=== PATIENT | female | born 1955 | race Caucasian/White ===

== ENCOUNTER → 2017-09-29 | Outpatient (CLI) | payer OTHER ==
[~2017-09-29] MED LIST: ASPI-555 PO; ATEN100T PO; FURO20TA6 PO; GABA-531 PO; HONEY 1 APPL/ML TUBE TP ONE; LIDOCAINE HCL 4% LTA SOL 4 ML VIAL TP ONE; METO200T49 PO; ROPI0.255 PO; SERT50TA12 PO; SIMV10TA6 PO; SPIR25TA6 PO
[2017-09-29 17:22] VITALS: BP 124/64
== END | disposition home or self-care (01) ==
LOC: WHH 14:30
PROVIDERS: ATTEND Family Medicine
DX: L89.613 Pressure ulcer of right heel, stage 3 (principal); L89.623 Pressure ulcer of left heel, stage 3; L89.893 Pressure ulcer of other site, stage 3; L89.323 Pressure ulcer of left buttock, stage 3; I89.0 Lymphedema, not elsewhere classified; E78.5 Hyperlipidemia, unspecified; I10 Essential (primary) hypertension
CPT/HCPCS: 11042; 11045; 36415; 84134; 86140; A4450; A6197; A6248; G0463

== ENCOUNTER 2017-10-04 18:38 | Inpatient (IN) | payer OTHER ==
[~2017-10-04] VITALS: Ht 167.6 cm; Wt 151.5 kg
[2017-10-04 19:40] LABS: BASOPHILS % (AUTO) 0.4 % (0.0-5.0); EOSINOPHILS % (AUTO) 0.9 % (0.0-8.0); LYMPHOCYTES % (AUTO) 2.5 % (21.0-51.0); MEAN CORPUSCULAR HEMOGLOBIN 28.5 pg (27.0-33.0); MEAN CORPUSCULAR HGB CONC 32.2 g/dL (32.0-36.0); MEAN CORPUSCULAR VOLUME 88.7 fL (79-99); MONOCYTES % (AUTO) 8.9 % (3.0-13.0); NEUTROPHILS % (AUTO) 87.3 % (40.0-77.0); PLATELET COUNT (AUTO) 269 K/uL (130-400); RED CELL DISTRIBUTION WIDTH 16.2 % (11.0-15.5); WHITE BLOOD COUNT (AUTO) 19.6 K/uL (4.8-10.8)
[2017-10-04 20:17] LABS: CREATININE 4.8 mg/dL (0.5-1.5)
[2017-10-04 20:18] LABS: POTASSIUM 5.9 mmol/L (3.5-5.1)
[2017-10-04 20:23] LABS: ALBUMIN 2.5 g/dL (3.5-5.0); BILIRUBIN,TOTAL 0.4 mg/dL (0.2-1.0)
[2017-10-04] MEDS ORDERED: ZOSYN 3.375GM+NS 50ML 50 ML IV ONE (20:25)
[2017-10-04] MEDS ORDERED: SODIUM CHLORIDE 0.9% 500ML 500 ML IV ONE (22:02)
[2017-10-04] MEDS ORDERED: VANCOMYCIN 1GM+NS 250ML 250 ML IV ONE (22:02)
[2017-10-04 22:40] LABS: INR 1.01 (0.85-1.15); PARTIAL THROMBOPLASTIN TIME 29.4 SEC (26.3-35.5); PROTHROMBIN TIME 10.6 SEC (9.6-11.6)
[2017-10-04] MEDS ORDERED: PHENYLEPHRINE HCL 10 MG/ML 1ML VIAL IV ONE (22:41)
[2017-10-04] MEDS ORDERED: SODIUM CHLORIDE 0.9% 1000ML 1,000 ML IV ONE (22:42)
[2017-10-04] MEDS ORDERED: SODIUM CHLORIDE 0.9% 250 ML IV ONE (22:44)
[2017-10-04 23:21] LABS: CREATINE KINASE MB 8.6 ng/mL (0.5-3.6); MYOGLOBIN 1836 ng/mL (10-92); TROPONIN I < 0.04 ng/mL (0.00-0.06)
[2017-10-04 23:23] LABS: CREATINE KINASE, TOTAL 442 U/L (21-232)
[2017-10-04 23:39] LABS: APPEARANCE,URINE Turbid (CLEAR); BILIRUBIN,URINE Negative (NEGATIVE); COLOR,URINE Dark Yellow (YELLOW); GLUCOSE, URINE (UA) Negative (NEGATIVE); KETONES,URINE Trace mg/dL (NEGATIVE); LEUKOCYTE ESTERASE ,URINE Moderate (NEGATIVE); NITRATE,URINE Negative (NEGATIVE); OCCULT BLOOD,URINE Moderate (NEGATIVE); PROTEIN,URINE >=1000 (NEGATIVE)
[2017-10-04 23:55] LABS: BACTERIA,URINE Few /HPF (None Seen)
[2017-10-04 23:56] LABS: AMORPHOUS SEDIMENT,UR Many /LPF (None Seen); MUCUS,URINE Few LPF (None Seen); SQUAMOUS EPITHELIAL CELL,UR Few /HPF (0-2)
[2017-10-05] VITALS (29 sets, daily range): BP systolic 86–143; BP diastolic 36–106
[2017-10-05] MEDS ORDERED: ENOXAPARIN SODIUM 30 MG/0.3 ML SQ ONE (00:03)
[2017-10-05] MEDS ORDERED: FLUCONAZOLE 400 MG/NS 200 ML 200 ML ONE (00:37)
[2017-10-05 01:17] LABS: ABG BASE EXCESS 1.5 mmol/L (-2.0-3.0); ABG HCO3 30.2 mmol/L (21.0-28.0); ABG OXYGEN SATURATION 89.9 % (95.0-99.0); ABG PCO2 65 mmHg (32-45)
[2017-10-05] MEDS ORDERED: HYDRALAZINE HCL 20 MG/ML VIAL IV PRN (01:30)
[2017-10-05] MEDS ORDERED: ONDANSETRON HCL 4 MG/2 ML VIAL IVP PRN ×2 (01:30→09:30)
[2017-10-05] MEDS ORDERED: MORPHINE SULFATE 2 MG/ML 1ML SYG IVP PRN ×2 (01:30)
[2017-10-05] MEDS ORDERED: HYDROCORTISONE SOD SUCCINATE 100 MG/2 ML VIAL ONE (01:31)
[2017-10-05] MEDS ORDERED: MORPHINE SULFATE 4 MG/1ML SYG ONE (01:51)
[2017-10-05] MEDS ORDERED: SODIUM CHLORIDE 0.9% 250 ML IV ONE ×5 (01:59→09:04)
[2017-10-05] MEDS ORDERED: PHENYLEPHRINE HCL 10 MG/ML 1ML VIAL IV ONE ×3 (01:59→09:03)
[2017-10-05 02:19] LABS: BASOPHILS % (AUTO) 0.2 % (0.0-5.0); EOSINOPHILS % (AUTO) 0.8 % (0.0-8.0); HEMATOCRIT 29.4 % (36-48); MEAN CORPUSCULAR HEMOGLOBIN 29.7 pg (27.0-33.0); MEAN CORPUSCULAR HGB CONC 33.2 g/dL (32.0-36.0); MEAN CORPUSCULAR VOLUME 89.6 fL (79-99); MONOCYTES % (AUTO) 9.9 % (3.0-13.0); NEUTROPHILS % (AUTO) 87.1 % (40.0-77.0); PLATELET COUNT (AUTO) 263 K/uL (130-400); RED BLOOD CELL COUNT(AUTO) 3.28 MIL/uL (4.00-5.50); RED CELL DISTRIBUTION WIDTH 16.3 % (11.0-15.5); WHITE BLOOD COUNT (AUTO) 17.3 K/uL (4.8-10.8)
[2017-10-05] MEDS ORDERED: SODIUM CHLORIDE 0.9% 100 ML IV ONE (03:07)
[2017-10-05] MEDS ORDERED: VASOPRESSIN 20 UNITS/ML 1ML VIAL ONE (03:07)
[2017-10-05 04:49] LABS: BASOPHILS % (AUTO) 0.3 % (0.0-5.0); EOSINOPHILS % (AUTO) 0.3 % (0.0-8.0); HEMATOCRIT 24.8 % (36-48); LYMPHOCYTES % (AUTO) 1.5 % (21.0-51.0); MEAN CORPUSCULAR HEMOGLOBIN 30.3 pg (27.0-33.0); MEAN CORPUSCULAR HGB CONC 34.1 g/dL (32.0-36.0); MEAN CORPUSCULAR VOLUME 88.8 fL (79-99); MONOCYTES % (AUTO) 5.6 % (3.0-13.0); NEUTROPHILS % (AUTO) 92.3 % (40.0-77.0); PLATELET COUNT (AUTO) 317 K/uL (130-400); RED BLOOD CELL COUNT(AUTO) 2.79 MIL/uL (4.00-5.50); RED CELL DISTRIBUTION WIDTH 16.2 % (11.0-15.5); WHITE BLOOD COUNT (AUTO) 19.8 K/uL (4.8-10.8)
[2017-10-05 05:04] LABS: B-TYPE NATRIURETIC PEPTIDE 1580 pg/mL (0-100)
[2017-10-05 05:17] LABS: CARBON DIOXIDE 31 mmol/L (21-32); CHLORIDE 96 mmol/L (101-111); CREATINE KINASE MB 5.6 ng/mL (0.5-3.6); CREATINE KINASE, TOTAL 336 U/L (21-232); CREATININE 4.5 mg/dL (0.5-1.5); GLOMERULAR FILTR. RATE CALC 10 mL/min (>60); GLUCOSE,RANDOM 109 mg/dL (70-105); MYOGLOBIN 896 ng/mL (10-92); POTASSIUM 5.2 mmol/L (3.5-5.1); SODIUM SERUM 134 mmol/L (136-145); TROPONIN I < 0.04 ng/mL (0.00-0.06); UREA NITROGEN, BLOOD 60 mg/dL (7-18)
[2017-10-05] MEDS ORDERED: ZOSYN 3.375GM+NS 50ML 50 ML IV ONE (06:19)
[2017-10-05 06:54] LABS: ABG BASE EXCESS -0.1 mmol/L (-2.0-3.0); ABG HCO3 29.7 mmol/L (21.0-28.0); ABG OXYGEN SATURATION 94.1 % (95.0-99.0); ABG PCO2 73 mmHg (32-45)
[2017-10-05] MEDS ORDERED: PHENYLEPHRINE HCL 10 MG in SODIUM CHLORIDE 0.9% 250 ML IV SCH (09:00)
[2017-10-05] MEDS: SODIUM CHLORIDE 0.9% 1000ML 1,000 ML IV SCH ×2 (09:30→10:50)
[2017-10-05] MEDS ORDERED: ACETAMINOPHEN 325 MG TAB PO PRN (09:30)
[2017-10-05] MEDS: ZOSYN 3.375GM+NS 50ML 50 ML IV SCH (09:30)
[2017-10-05] MEDS ORDERED: VANCOMYCIN PROTOCOL PER PHARMACY IV SCH (09:30)
[2017-10-05] MEDS ORDERED: VASOPRESSIN 125 UNITS in SODIUM CHLORIDE 0.9% 250 ML IV PRN (09:30)
[2017-10-05] MEDS ORDERED: MORPHINE SULFATE 4 MG/1ML SYG IVP PRN ×2 (09:30)
[2017-10-05 09:57] LABS: ABG BASE EXCESS -1.6 mmol/L (-2.0-3.0); ABG HCO3 26.9 mmol/L (21.0-28.0); ABG OXYGEN SATURATION 92.1 % (95.0-99.0); ABG PCO2 62 mmHg (32-45)
[2017-10-05] MEDS ORDERED: ASPI-555 PO (10:29)
[2017-10-05] MEDS ORDERED: SERT50TA12 PO (10:29)
[2017-10-05] MEDS ORDERED: ATEN100T PO (10:29)
[2017-10-05] MEDS ORDERED: SPIR25TA6 PO (10:29)
[2017-10-05] MEDS ORDERED: METO200T49 PO (10:29)
[2017-10-05] MEDS ORDERED: FURO20TA6 PO (10:29)
[2017-10-05] MEDS ORDERED: ROPI0.255 PO (10:29)
[2017-10-05] MEDS ORDERED: GABA-531 PO (10:29)
[2017-10-05] MEDS ORDERED: SIMV10TA6 PO (10:29)
[2017-10-05] MEDS: PHENYLEPHRINE HCL 10 MG in SODIUM CHLORIDE 0.9% 250 ML IV SCH ×5 (11:14→18:07)
[2017-10-05] MEDS ORDERED: COMPOUND IV REFRIGERATED 1 EACH IVSOLN MISC PRN (11:15)
[2017-10-05] MEDS: LACTATED RINGERS 1000ML 1,000 ML IV SCH (17:45)
[2017-10-05] MEDS ORDERED: PHENYLEPHRINE HCL 50 MG in SODIUM CHLORIDE 0.9% 250 ML IV SCH (19:15)
[2017-10-05] MEDS: ACETAMINOPHEN 325 MG TAB PO PRN (20:49)
[2017-10-05] MEDS: VANCOMYCIN 750MG + NS 250 ML IV SCH ×2 (22:34)
[2017-10-05] MEDS: NYSTATIN 30 GM CREAM.GM. TP SCH (22:39)
[2017-10-05] MEDS: HYDROCORTISONE SOD SUCCINATE 100 MG/2 ML VIAL IV SCH (22:39)
[2017-10-06] VITALS (24 sets, daily range): BP systolic 76–129; BP diastolic 29–75
[2017-10-06] MEDS: ZOSYN 3.375GM+NS 50ML 50 ML IV SCH ×3 (00:02→21:56)
[2017-10-06] MEDS: LACTATED RINGERS 1000ML 1,000 ML IV SCH ×3 (01:45→16:32)
[2017-10-06 03:57] LABS: ABG BASE EXCESS -2.5 mmol/L (-2.0-3.0); ABG OXYGEN SATURATION 96.5 % (95.0-99.0); ABG PCO2 61 mmHg (32-45)
[2017-10-06 04:25] LABS: HEMATOCRIT 27.2 % (36-48); MEAN CORPUSCULAR HEMOGLOBIN 30.1 pg (27.0-33.0); MEAN CORPUSCULAR HGB CONC 33.9 g/dL (32.0-36.0); MEAN CORPUSCULAR VOLUME 88.8 fL (79-99); PLATELET COUNT (AUTO) 283 K/uL (130-400); RED BLOOD CELL COUNT(AUTO) 3.06 MIL/uL (4.00-5.50); RED CELL DISTRIBUTION WIDTH 16.2 % (11.0-15.5); WHITE BLOOD COUNT (AUTO) 12.9 K/uL (4.8-10.8)
[2017-10-06 04:28] LABS: ALBUMIN 2.2 g/dL (3.5-5.0); BILIRUBIN,TOTAL 0.5 mg/dL (0.2-1.0); CREATININE 3.7 mg/dL (0.5-1.5); MAGNESIUM 1.6 mg/dL (1.80-2.40); PHOSPHORUS 5.6 mg/dL (2.5-4.9)
[2017-10-06 04:31] LABS: B-TYPE NATRIURETIC PEPTIDE 2150 pg/mL (0-100)
[2017-10-06 04:41] LABS: TOTAL PROTEIN, SERUM 6.6 g/dL (6.0-8.3)
[2017-10-06 04:51] LABS: BAND NEUTROPHILS % (MANUAL) 7 % (0-2); BASOPHILS % (MANUAL) 2 % (0-2); LYMPHOCYTES % (MANUAL) 6 % (22-44); MAN.DIFF COMMENT-IMPRESSION MANUAL DIFFERENTIAL; MONOCYTES % (MANUAL) 4 % (2-9); PLATELET MORPHOLOGY COMMENT ADEQUATE; SEGMENTED NEUTROPHILS % 81 % (40-70)
[2017-10-06 07:27] LABS: ABG BASE EXCESS -1.6 mmol/L (-2.0-3.0); ABG HCO3 26.3 mmol/L (21.0-28.0); ABG OXYGEN SATURATION 93.5 % (95.0-99.0); ABG PCO2 57 mmHg (32-45)
[2017-10-06] MEDS: FLUCONAZOLE 200 MG/NS 100 ML 100 ML IV SCH (08:26)
[2017-10-06] MEDS: THIAMINE HCL 100 MG TABLET PO SCH (08:26)
[2017-10-06] MEDS: HYDROCORTISONE SOD SUCCINATE 100 MG/2 ML VIAL IV SCH ×2 (08:26→21:56)
[2017-10-06] MEDS: ENOXAPARIN SODIUM 30 MG/0.3 ML SQ SCH (08:26)
[2017-10-06] MEDS: NYSTATIN 30 GM CREAM.GM. TP SCH (08:27)
[2017-10-06] MEDS: PANTOPRAZOLE 40 MG/VIAL IVP SCH (08:55)
[2017-10-06] MEDS ORDERED: ENOXAPARIN SODIUM 40 MG/0.4 ML SYRINGE SQ SCH (09:00)
[2017-10-06] MEDS: ACETAMINOPHEN 325 MG TAB PO PRN (16:38)
[2017-10-06] MEDS: MAGNESIUM 2GM PREMIX 50ML 50 ML IV PRN (19:27)
[2017-10-06] MEDS: VANCOMYCIN 750MG + NS 250 ML IV SCH ×2 (21:56)
[2017-10-07] VITALS (23 sets, daily range): BP systolic 75–154; BP diastolic 37–118
[2017-10-07] MEDS: NYSTATIN 30 GM CREAM.GM. TP SCH ×3 (00:34→20:43)
[2017-10-07] MEDS: LACTATED RINGERS 1000ML 1,000 ML IV SCH ×4 (01:45→21:59)
[2017-10-07] MEDS: ACETAMINOPHEN 325 MG TAB PO PRN (04:11)
[2017-10-07 04:22] LABS: ABG BASE EXCESS 0.2 mmol/L (-2.0-3.0); ABG HCO3 28.2 mmol/L (21.0-28.0); ABG OXYGEN SATURATION 96.4 % (95.0-99.0); ABG PCO2 60 mmHg (32-45)
[2017-10-07 04:57] LABS: BASOPHILS % (AUTO) 0.2 % (0.0-5.0); EOSINOPHILS % (AUTO) 0.1 % (0.0-8.0); HEMATOCRIT 28.6 % (36-48); LYMPHOCYTES % (AUTO) 4.1 % (21.0-51.0); MEAN CORPUSCULAR HEMOGLOBIN 28.8 pg (27.0-33.0); MEAN CORPUSCULAR HGB CONC 32.5 g/dL (32.0-36.0); MEAN CORPUSCULAR VOLUME 88.7 fL (79-99); MONOCYTES % (AUTO) 7.9 % (3.0-13.0); NEUTROPHILS % (AUTO) 87.7 % (40.0-77.0); PLATELET COUNT (AUTO) 310 K/uL (130-400); RED BLOOD CELL COUNT(AUTO) 3.23 MIL/uL (4.00-5.50); WHITE BLOOD COUNT (AUTO) 10.2 K/uL (4.8-10.8)
[2017-10-07 05:13] LABS: CREATININE 2.5 mg/dL (0.5-1.5); PHOSPHORUS 4.3 mg/dL (2.5-4.9); POTASSIUM 4.6 mmol/L (3.5-5.1)
[2017-10-07 05:14] LABS: B-TYPE NATRIURETIC PEPTIDE 2790 pg/mL (0-100)
[2017-10-07] MEDS: INSULIN HUMULIN R 100 UNIT/ML 3ML SQ SCH ×4 (07:29→21:00)
[2017-10-07] MEDS: ENOXAPARIN SODIUM 30 MG/0.3 ML SQ SCH (08:22)
[2017-10-07] MEDS: ZOSYN 3.375GM+NS 50ML 50 ML IV SCH ×2 (08:22→20:43)
[2017-10-07] MEDS: PANTOPRAZOLE 40 MG/VIAL IVP SCH (08:22)
[2017-10-07] MEDS: HYDROCORTISONE SOD SUCCINATE 100 MG/2 ML VIAL IV SCH ×2 (08:22→20:42)
[2017-10-07] MEDS: THIAMINE HCL 100 MG TABLET PO SCH (08:22)
[2017-10-07] MEDS: FLUCONAZOLE 200 MG/NS 100 ML 100 ML IV SCH (08:22)
[2017-10-07] MEDS: VANCOMYCIN 750MG + NS 250 ML IV SCH ×2 (21:12)
[2017-10-08] VITALS (29 sets, daily range): BP systolic 76–150; BP diastolic 38–94
[2017-10-08 03:59] LABS: HEMATOCRIT 27.9 % (36-48); MEAN CORPUSCULAR HGB CONC 33.9 g/dL (32.0-36.0); MEAN CORPUSCULAR VOLUME 88.6 fL (79-99); NUCLEATED RED BLOOD CELLS 0.1 % (0.0-0.19); PLATELET COUNT (AUTO) 278 K/uL (130-400); RED BLOOD CELL COUNT(AUTO) 3.15 MIL/uL (4.00-5.50); WHITE BLOOD COUNT (AUTO) 9.1 K/uL (4.8-10.8)
[2017-10-08 04:07] LABS: ALBUMIN 2.1 g/dL (3.5-5.0); BILIRUBIN,TOTAL 0.4 mg/dL (0.2-1.0); CREATININE 1.5 mg/dL (0.5-1.5); MAGNESIUM 1.7 mg/dL (1.80-2.40); PHOSPHORUS 3.1 mg/dL (2.5-4.9); POTASSIUM 4.6 mmol/L (3.5-5.1); TOTAL PROTEIN, SERUM 6.4 g/dL (6.0-8.3)
[2017-10-08] MEDS: MAGNESIUM 2GM PREMIX 50ML 50 ML IV PRN (04:57)
[2017-10-08 06:40] LABS: ABG BASE EXCESS 7.2 mmol/L (-2.0-3.0); ABG PCO2 46 mmHg (32-45)
[2017-10-08] MEDS: INSULIN HUMULIN R 100 UNIT/ML 3ML SQ SCH ×4 (07:04→21:00)
[2017-10-08] MEDS: FLUCONAZOLE 200 MG/NS 100 ML 100 ML IV SCH (08:45)
[2017-10-08] MEDS: FOLIC ACID 1 MG TABLET PO SCH (08:46)
[2017-10-08] MEDS: THIAMINE HCL 100 MG TABLET PO SCH (08:46)
[2017-10-08] MEDS: HYDROCORTISONE SOD SUCCINATE 100 MG/2 ML VIAL IV SCH ×2 (08:46→20:17)
[2017-10-08] MEDS: SIMETHICONE 80 MG TAB.CHEW PO SCH ×4 (08:46→20:17)
[2017-10-08] MEDS: ZOSYN 3.375GM+NS 50ML 50 ML IV SCH ×2 (08:46→20:16)
[2017-10-08] MEDS: NYSTATIN 30 GM CREAM.GM. TP SCH ×2 (08:47→20:17)
[2017-10-08] MEDS: ENOXAPARIN SODIUM 30 MG/0.3 ML SQ SCH (08:47)
[2017-10-08] MEDS: LACTATED RINGERS 1000ML 1,000 ML IV SCH (09:45)
[2017-10-08] MEDS: PANTOPRAZOLE 40 MG/VIAL IVP SCH (17:19)
[2017-10-08] MEDS: MULTIVITS,STRESS FORMULA/ZINC 1 TABLET PO SCH (17:19)
[2017-10-08] MEDS: LACTULOSE 20 GM/30 ML UDCUP PO PRN (17:19)
[2017-10-08] MEDS: ACETAMINOPHEN 325 MG TAB PO PRN (19:29)
[2017-10-08] MEDS: VANCOMYCIN 750MG + NS 250 ML IV SCH ×2 (20:16)
[2017-10-08] MEDS: ACETAMINOPHEN-CODEINE 300/30MG TAB PO PRN (22:04)
[2017-10-08] MEDS: VANCOMYCIN 1GM+NS 250ML 250 ML IV SCH (22:26)
[2017-10-09] VITALS (24 sets, daily range): BP systolic 94–147; BP diastolic 49–80
[2017-10-09 04:28] LABS: HEMATOCRIT 27.6 % (36-48); MEAN CORPUSCULAR HEMOGLOBIN 29.4 pg (27.0-33.0); MEAN CORPUSCULAR HGB CONC 33.2 g/dL (32.0-36.0); MEAN CORPUSCULAR VOLUME 88.5 fL (79-99); PLATELET COUNT (AUTO) 269 K/uL (130-400); RED BLOOD CELL COUNT(AUTO) 3.12 MIL/uL (4.00-5.50); RED CELL DISTRIBUTION WIDTH 16.2 % (11.0-15.5); WHITE BLOOD COUNT (AUTO) 7.2 K/uL (4.8-10.8)
[2017-10-09 04:35] LABS: CREATININE 1.1 mg/dL (0.5-1.5); MAGNESIUM 1.5 mg/dL (1.80-2.40); PHOSPHORUS 2.7 mg/dL (2.5-4.9); POTASSIUM 4.3 mmol/L (3.5-5.1)
[2017-10-09] MEDS: MAGNESIUM 2GM PREMIX 50ML 50 ML IV PRN (04:56)
[2017-10-09] MEDS: INSULIN HUMULIN R 100 UNIT/ML 3ML SQ SCH (07:30)
[2017-10-09] MEDS: ZOSYN 3.375GM+NS 50ML 50 ML IV SCH ×2 (08:57→20:52)
[2017-10-09] MEDS: SIMETHICONE 80 MG TAB.CHEW PO SCH ×4 (08:58→20:53)
[2017-10-09] MEDS: FOLIC ACID 1 MG TABLET PO SCH (08:58)
[2017-10-09] MEDS: THIAMINE HCL 100 MG TABLET PO SCH (08:58)
[2017-10-09] MEDS: FLUCONAZOLE 200 MG/NS 100 ML 100 ML IV SCH (08:58)
[2017-10-09] MEDS: PANTOPRAZOLE 40 MG/VIAL IVP SCH (08:58)
[2017-10-09] MEDS: HYDROCORTISONE SOD SUCCINATE 100 MG/2 ML VIAL IV SCH ×2 (08:58→20:51)
[2017-10-09] MEDS: MULTIVITS,STRESS FORMULA/ZINC 1 TABLET PO SCH (08:58)
[2017-10-09] MEDS: NYSTATIN 30 GM CREAM.GM. TP SCH ×2 (08:59→20:53)
[2017-10-09] MEDS: ENOXAPARIN SODIUM 40 MG/0.4 ML SYRINGE SQ SCH (08:59)
[2017-10-09] MEDS: ACETAMINOPHEN-CODEINE 300/30MG TAB PO PRN (17:33)
[2017-10-09] MEDS: VANCOMYCIN 1GM+NS 250ML 250 ML IV SCH (20:52)
[2017-10-10] VITALS (27 sets, daily range): BP systolic 109–151; BP diastolic 41–85
[2017-10-10 03:23] LABS: HEMATOCRIT 28.6 % (36-48); MEAN CORPUSCULAR HEMOGLOBIN 30.3 pg (27.0-33.0); MEAN CORPUSCULAR HGB CONC 33.6 g/dL (32.0-36.0); PLATELET COUNT (AUTO) 277 K/uL (130-400); RED BLOOD CELL COUNT(AUTO) 3.18 MIL/uL (4.00-5.50); RED CELL DISTRIBUTION WIDTH 16.2 % (11.0-15.5); WHITE BLOOD COUNT (AUTO) 7.7 K/uL (4.8-10.8)
[2017-10-10 03:32] LABS: CREATININE 0.8 mg/dL (0.5-1.5); MAGNESIUM 1.5 mg/dL (1.80-2.40); PHOSPHORUS 2.5 mg/dL (2.5-4.9); POTASSIUM 4.4 mmol/L (3.5-5.1)
[2017-10-10 03:34] LABS: INR 1.06 (0.85-1.15); PROTHROMBIN TIME 11.1 SEC (9.6-11.6)
[2017-10-10] MEDS: MAGNESIUM 2GM PREMIX 50ML 50 ML IV PRN (06:59)
[2017-10-10] MEDS: ENOXAPARIN SODIUM 40 MG/0.4 ML SYRINGE SQ SCH (09:00)
[2017-10-10] MEDS: MULTIVITS,STRESS FORMULA/ZINC 1 TABLET PO SCH (09:00)
[2017-10-10] MEDS: ASCORBIC ACID 500 MG TAB PO SCH (09:00)
[2017-10-10] MEDS: FOLIC ACID 1 MG TABLET PO SCH (09:00)
[2017-10-10] MEDS: THIAMINE HCL 100 MG TABLET PO SCH (09:00)
[2017-10-10] MEDS ORDERED: DEXAMETHASONE SOD PHOSPHATE 10MG/ML 1ML VIAL ONE (09:02)
[2017-10-10] MEDS ORDERED: GLYCOPYRROLATE 0.2 MG/ML 5 ML VIAL ONE (09:02)
[2017-10-10] MEDS ORDERED: NEOSTIGMINE 5MG/5ML SYR IV ONE (09:02)
[2017-10-10] MEDS ORDERED: SUCCINYLCHOLINE 200MG/10ML SYR ONE (09:02)
[2017-10-10] MEDS ORDERED: LIDOCAINE PF 2% 5ML ABBOJECT ONE (09:02)
[2017-10-10] MEDS ORDERED: ONDANSETRON HCL 4 MG/2 ML VIAL ONE (09:02)
[2017-10-10] MEDS ORDERED: PROPOFOL 10 MG/ML 20ML VIAL IV ONE (09:03)
[2017-10-10] MEDS: HYDROCORTISONE SOD SUCCINATE 100 MG/2 ML VIAL IV SCH ×2 (09:08→21:03)
[2017-10-10] MEDS: PANTOPRAZOLE 40 MG/VIAL IVP SCH (09:08)
[2017-10-10] MEDS: FLUCONAZOLE 200 MG/NS 100 ML 100 ML IV SCH (09:08)
[2017-10-10] MEDS: ZOSYN 3.375GM+NS 50ML 50 ML IV SCH ×2 (09:08→21:03)
[2017-10-10] MEDS: NYSTATIN 30 GM CREAM.GM. TP SCH ×3 (10:00→21:04)
[2017-10-10] MEDS: SIMETHICONE 80 MG TAB.CHEW PO SCH ×4 (13:00→21:03)
[2017-10-10] MEDS ORDERED: KETAMINE HCL 100 MG/ML 5ML VIAL IJ ONE (13:21)
[2017-10-10] MEDS ORDERED: PHARMACY COMMUNICATION MISC SCH (16:00)
[2017-10-10] MEDS ORDERED: SODIUM HYPOCHLORITE 0.25% [HALF STRENGTH] 473 ML TOPICAL SOLN TP SCH ×2 (16:00→23:00)
[2017-10-10] MEDS: ACETAMINOPHEN-CODEINE 300/30MG TAB PO PRN (18:02)
[2017-10-10] MEDS: VANCOMYCIN 1GM+NS 250ML 250 ML IV SCH (21:03)
[2017-10-11] VITALS (14 sets, daily range): BP systolic 92–145; BP diastolic 41–84
[2017-10-11] MEDS: ACETAMINOPHEN-CODEINE 300/30MG TAB PO PRN ×4 (00:31→22:19)
[2017-10-11] MEDS: SODIUM HYPOCHLORITE 0.25% [HALF STRENGTH] 473 ML TOPICAL SOLN TP SCH ×3 (00:32→20:49)
[2017-10-11 04:02] LABS: HEMATOCRIT 29.1 % (36-48); MEAN CORPUSCULAR HEMOGLOBIN 28.3 pg (27.0-33.0); MEAN CORPUSCULAR HGB CONC 31.7 g/dL (32.0-36.0); MEAN CORPUSCULAR VOLUME 89.3 fL (79-99); PLATELET COUNT (AUTO) 260 K/uL (130-400); RED BLOOD CELL COUNT(AUTO) 3.26 MIL/uL (4.00-5.50); RED CELL DISTRIBUTION WIDTH 16.2 % (11.0-15.5); WHITE BLOOD COUNT (AUTO) 9.1 K/uL (4.8-10.8)
[2017-10-11 04:11] LABS: CREATININE 0.7 mg/dL (0.5-1.5); POTASSIUM 3.9 mmol/L (3.5-5.1)
[2017-10-11 04:36] LABS: BAND NEUTROPHILS % (MANUAL) 3 % (0-2); EOSINOPHILS % (MANUAL) 3 % (1-6); LYMPHOCYTES % (MANUAL) 12 % (22-44); METAMYELOCYTES % 2 % (0-0); MONOCYTES % (MANUAL) 5 % (2-9); SEGMENTED NEUTROPHILS % 75 % (40-70)
[2017-10-11 04:38] LABS: MAN.DIFF COMMENT-IMPRESSION MANUAL DIFFERENTIAL
[2017-10-11 04:39] LABS: PLATELET MORPHOLOGY COMMENT ADEQUATE
[2017-10-11] MEDS: ZOSYN 3.375GM+NS 50ML 50 ML IV SCH ×2 (08:04→20:46)
[2017-10-11] MEDS: PANTOPRAZOLE 40 MG/VIAL IVP SCH (08:04)
[2017-10-11] MEDS: ENOXAPARIN SODIUM 40 MG/0.4 ML SYRINGE SQ SCH ×2 (08:04→20:47)
[2017-10-11] MEDS: HYDROCORTISONE SOD SUCCINATE 100 MG/2 ML VIAL IV SCH ×2 (08:04→20:47)
[2017-10-11] MEDS: ASCORBIC ACID 500 MG TAB PO SCH (08:05)
[2017-10-11] MEDS: MULTIVITS,STRESS FORMULA/ZINC 1 TABLET PO SCH (08:05)
[2017-10-11] MEDS: FOLIC ACID 1 MG TABLET PO SCH (08:05)
[2017-10-11] MEDS: THIAMINE HCL 100 MG TABLET PO SCH (08:05)
[2017-10-11] MEDS: SIMETHICONE 80 MG TAB.CHEW PO SCH ×4 (08:05→20:46)
[2017-10-11] MEDS: NYSTATIN 30 GM CREAM.GM. TP SCH ×2 (08:06→20:50)
[2017-10-11] MEDS: FLUCONAZOLE 200 MG/NS 100 ML 100 ML IV SCH (08:06)
[2017-10-11] MEDS: VANCOMYCIN 1GM+NS 250ML 250 ML IV SCH (20:48)
[2017-10-11] MEDS: FUROSEMIDE 20 MG TABLET PO SCH (20:48)
[2017-10-12] VITALS (7 sets, daily range): BP systolic 125–142; BP diastolic 67–90
[2017-10-12] MEDS: ACETAMINOPHEN-CODEINE 300/30MG TAB PO PRN ×3 (05:07→21:35)
[2017-10-12] MEDS: SODIUM HYPOCHLORITE 0.25% [HALF STRENGTH] 473 ML TOPICAL SOLN TP SCH ×3 (05:07→21:37)
[2017-10-12 05:11] LABS: HEMATOCRIT 29.8 % (36-48); MEAN CORPUSCULAR HEMOGLOBIN 29.9 pg (27.0-33.0); MEAN CORPUSCULAR HGB CONC 33.7 g/dL (32.0-36.0); PLATELET COUNT (AUTO) 256 K/uL (130-400); RED BLOOD CELL COUNT(AUTO) 3.35 MIL/uL (4.00-5.50); RED CELL DISTRIBUTION WIDTH 16.1 % (11.0-15.5); WHITE BLOOD COUNT (AUTO) 10.7 K/uL (4.8-10.8)
[2017-10-12 05:31] LABS: CREATININE 0.6 mg/dL (0.5-1.5); POTASSIUM 3.7 mmol/L (3.5-5.1)
[2017-10-12] MEDS: MULTIVITS,STRESS FORMULA/ZINC 1 TABLET PO SCH (09:00)
[2017-10-12] MEDS: THIAMINE HCL 100 MG TABLET PO SCH (09:30)
[2017-10-12] MEDS: FUROSEMIDE 20 MG TABLET PO SCH ×2 (09:31→21:37)
[2017-10-12] MEDS: ASCORBIC ACID 500 MG TAB PO SCH (09:31)
[2017-10-12] MEDS: PANTOPRAZOLE SODIUM 40 MG TABLET.DR PO SCH (09:32)
[2017-10-12] MEDS: HYDROCORTISONE SOD SUCCINATE 100 MG/2 ML VIAL IV SCH (09:32)
[2017-10-12] MEDS: SIMETHICONE 80 MG TAB.CHEW PO SCH ×4 (09:32→21:36)
[2017-10-12] MEDS: FOLIC ACID 1 MG TABLET PO SCH (09:32)
[2017-10-12] MEDS: ZOSYN 3.375GM+NS 50ML 50 ML IV SCH ×2 (09:33→21:37)
[2017-10-12] MEDS: ENOXAPARIN SODIUM 40 MG/0.4 ML SYRINGE SQ SCH ×2 (09:34→21:36)
[2017-10-12] MEDS: FLUCONAZOLE 200 MG/NS 100 ML 100 ML IV SCH (09:57)
[2017-10-12] MEDS ORDERED: MORPHINE SULFATE 4 MG/1ML SYG ONE (14:24)
[2017-10-12] MEDS: NYSTATIN 30 GM CREAM.GM. TP SCH ×2 (15:18→21:37)
[2017-10-12] MEDS ORDERED: SILVER NITRATE APPLICATOR 1 SWAB TP ONE (18:36)
[2017-10-12 18:52] LABS: HEMATOCRIT 32.4 % (36-48); MEAN CORPUSCULAR HEMOGLOBIN 27.9 pg (27.0-33.0); MEAN CORPUSCULAR HGB CONC 31.6 g/dL (32.0-36.0); MEAN CORPUSCULAR VOLUME 88.3 fL (79-99); NUCLEATED RED BLOOD CELLS 0.2 % (0.0-0.19); PLATELET COUNT (AUTO) 300 K/uL (130-400); RED BLOOD CELL COUNT(AUTO) 3.67 MIL/uL (4.00-5.50); RED CELL DISTRIBUTION WIDTH 16.1 % (11.0-15.5); WHITE BLOOD COUNT (AUTO) 12.7 K/uL (4.8-10.8)
[2017-10-12] MEDS: VANCOMYCIN 1.25 GM in SODIUM CHLORIDE 0.9% 250 ML IV SCH (22:37)
[2017-10-13] VITALS (7 sets, daily range): BP systolic 114–153; BP diastolic 60–74
[2017-10-13 04:24] LABS: HEMATOCRIT 27.6 % (36-48); MEAN CORPUSCULAR HEMOGLOBIN 28.9 pg (27.0-33.0); MEAN CORPUSCULAR HGB CONC 33.1 g/dL (32.0-36.0); MEAN CORPUSCULAR VOLUME 87.2 fL (79-99); PLATELET COUNT (AUTO) 251 K/uL (130-400); RED BLOOD CELL COUNT(AUTO) 3.17 MIL/uL (4.00-5.50); WHITE BLOOD COUNT (AUTO) 10.3 K/uL (4.8-10.8)
[2017-10-13] MEDS: MORPHINE SULFATE 4 MG/1ML SYG IM PRN (04:27)
[2017-10-13] MEDS: SODIUM HYPOCHLORITE 0.25% [HALF STRENGTH] 473 ML TOPICAL SOLN TP SCH ×2 (04:29→20:46)
[2017-10-13 04:31] LABS: BAND NEUTROPHILS % (MANUAL) 11 % (0-2); CREATININE 0.6 mg/dL (0.5-1.5); EOSINOPHILS % (MANUAL) 2 % (1-6); LYMPHOCYTES % (MANUAL) 9 % (22-44); MAN.DIFF COMMENT-IMPRESSION MANUAL DIFFERENTIAL; MONOCYTES % (MANUAL) 4 % (2-9); PLATELET MORPHOLOGY COMMENT ADEQUATE; POTASSIUM 3.4 mmol/L (3.5-5.1); SEGMENTED NEUTROPHILS % 74 % (40-70)
[2017-10-13] MEDS: MULTIVITS,STRESS FORMULA/ZINC 1 TABLET PO SCH (09:00)
[2017-10-13] MEDS: ENOXAPARIN SODIUM 40 MG/0.4 ML SYRINGE SQ SCH ×2 (10:16→20:44)
[2017-10-13] MEDS: SIMETHICONE 80 MG TAB.CHEW PO SCH ×4 (10:16→20:45)
[2017-10-13] MEDS: FLUCONAZOLE 200 MG/NS 100 ML 100 ML IV SCH (10:16)
[2017-10-13] MEDS: HONEY 1 APPL/ML TUBE TP SCH ×2 (10:16→11:54)
[2017-10-13] MEDS: PREDNISONE 10 MG TABLET PO SCH (10:17)
[2017-10-13] MEDS: PANTOPRAZOLE SODIUM 40 MG TABLET.DR PO SCH (10:17)
[2017-10-13] MEDS: THIAMINE HCL 100 MG TABLET PO SCH (10:17)
[2017-10-13] MEDS: ASCORBIC ACID 500 MG TAB PO SCH (10:17)
[2017-10-13] MEDS: FOLIC ACID 1 MG TABLET PO SCH (10:17)
[2017-10-13] MEDS: FUROSEMIDE 20 MG TABLET PO SCH ×2 (10:18→20:44)
[2017-10-13] MEDS: VANCOMYCIN 1.25 GM in SODIUM CHLORIDE 0.9% 250 ML IV SCH ×2 (11:37→20:45)
[2017-10-13] MEDS: ZOSYN 3.375GM+NS 50ML 50 ML IV SCH ×2 (11:37→20:43)
[2017-10-13] MEDS: NYSTATIN 30 GM CREAM.GM. TP SCH ×2 (11:53→20:46)
[2017-10-14] MEDS: MORPHINE SULFATE 4 MG/1ML SYG IM PRN ×2 (03:52→16:07)
[2017-10-14 04:12] LABS: HEMATOCRIT 27.3 % (36-48); MEAN CORPUSCULAR HEMOGLOBIN 29.5 pg (27.0-33.0); MEAN CORPUSCULAR VOLUME 86.9 fL (79-99); PLATELET COUNT (AUTO) 254 K/uL (130-400); RED BLOOD CELL COUNT(AUTO) 3.14 MIL/uL (4.00-5.50); RED CELL DISTRIBUTION WIDTH 16.3 % (11.0-15.5); WHITE BLOOD COUNT (AUTO) 11.7 K/uL (4.8-10.8)
[2017-10-14 04:30] VITALS: BP 146/74
[2017-10-14 04:38] LABS: ALBUMIN 1.9 g/dL (3.5-5.0); BILIRUBIN,TOTAL 0.5 mg/dL (0.2-1.0); CREATININE 0.6 mg/dL (0.5-1.5); POTASSIUM 3.1 mmol/L (3.5-5.1); TOTAL PROTEIN, SERUM 5.4 g/dL (6.0-8.3)
[2017-10-14] MEDS ORDERED: LIDOCAINE HCL-MPF 1% 2ML VIAL IVP PRN (07:45)
[2017-10-14 08:00] VITALS: BP_SYST 115; BP_SYST 131; BP_DIAS 57; BP_DIAS 73
[2017-10-14] MEDS: FOLIC ACID 1 MG TABLET PO SCH (08:04)
[2017-10-14] MEDS: OXYBUTYNIN 5 MG TAB.SR.24H PO SCH (08:04)
[2017-10-14] MEDS: THIAMINE HCL 100 MG TABLET PO SCH (08:04)
[2017-10-14] MEDS: ASCORBIC ACID 500 MG TAB PO SCH (08:05)
[2017-10-14] MEDS: PANTOPRAZOLE SODIUM 40 MG TABLET.DR PO SCH (08:05)
[2017-10-14] MEDS: FLUCONAZOLE 200 MG/NS 100 ML 100 ML IV SCH (08:06)
[2017-10-14] MEDS: PREDNISONE 10 MG TABLET PO SCH (08:06)
[2017-10-14] MEDS: FUROSEMIDE 20 MG TABLET PO SCH ×2 (08:06→20:45)
[2017-10-14] MEDS: ACETAMINOPHEN-CODEINE 300/30MG TAB PO PRN (08:08)
[2017-10-14] MEDS: SERTRALINE HCL 50 MG TABLET PO SCH (08:20)
[2017-10-14] MEDS: GABAPENTIN 300 MG CAPSULE PO SCH ×3 (08:20→20:47)
[2017-10-14] MEDS: SPIRONOLACTONE 25 MG TAB PO SCH ×2 (08:20→20:45)
[2017-10-14] MEDS: METOPROLOL TARTRATE 50 MG TAB PO SCH ×2 (08:21→20:45)
[2017-10-14] MEDS: SIMETHICONE 80 MG TAB.CHEW PO SCH ×3 (08:21→20:48)
[2017-10-14] MEDS: VANCOMYCIN 1.25 GM in SODIUM CHLORIDE 0.9% 250 ML IV SCH ×2 (08:23→20:45)
[2017-10-14] MEDS: ENOXAPARIN SODIUM 40 MG/0.4 ML SYRINGE SQ SCH ×2 (08:24→20:56)
[2017-10-14] MEDS: MULTIVITS,STRESS FORMULA/ZINC 1 TABLET PO SCH (09:00)
[2017-10-14] MEDS: ZOSYN 3.375GM+NS 50ML 50 ML IV SCH ×2 (09:29→20:44)
[2017-10-14] MEDS: POTASSIUM CHLORIDE 20MEQ/100ML 100 ML IV PRN ×2 (09:30→14:03)
[2017-10-14 11:00] VITALS: BP 115/57
[2017-10-14] MEDS ORDERED: POTASSIUM CHLORIDE 10% ELIXIR 20 MEQ/15 ML UDCUP PO PRN (15:15)
[2017-10-14 16:00] VITALS: BP 127/52
[2017-10-14] MEDS: SODIUM HYPOCHLORITE 0.25% [HALF STRENGTH] 473 ML TOPICAL SOLN TP SCH ×2 (17:02→20:58)
[2017-10-14] MEDS: HONEY 1 APPL/ML TUBE TP SCH (17:03)
[2017-10-14] MEDS: NYSTATIN 30 GM CREAM.GM. TP SCH ×2 (17:03→20:57)
[2017-10-14 19:40] VITALS: BP 130/74
[2017-10-14] MEDS: ROPINIROLE HCL 1 MG TABLET PO SCH (20:46)
[2017-10-14] MEDS: ATORVASTATIN CALCIUM 10 MG TABLET PO SCH (20:47)
[2017-10-14] MEDS: DOCUSATE CALCIUM 240 MG CAP PO SCH (21:03)
[2017-10-14 23:44] VITALS: BP 116/68
[2017-10-15 03:30] VITALS: BP 117/74
[2017-10-15 04:56] LABS: HEMATOCRIT 27.1 % (36-48); MEAN CORPUSCULAR HEMOGLOBIN 28.8 pg (27.0-33.0); MEAN CORPUSCULAR HGB CONC 33.1 g/dL (32.0-36.0); MEAN CORPUSCULAR VOLUME 87.1 fL (79-99); PLATELET COUNT (AUTO) 258 K/uL (130-400); RED BLOOD CELL COUNT(AUTO) 3.12 MIL/uL (4.00-5.50); WHITE BLOOD COUNT (AUTO) 9.8 K/uL (4.8-10.8)
[2017-10-15 05:07] LABS: CREATININE 0.6 mg/dL (0.5-1.5); MAGNESIUM 0.8 mg/dL (1.80-2.40); POTASSIUM 3.2 mmol/L (3.5-5.1)
[2017-10-15 07:57] VITALS: BP 122/75
[2017-10-15] MEDS: VANCOMYCIN 1.25 GM in SODIUM CHLORIDE 0.9% 250 ML IV SCH ×2 (08:51→20:34)
[2017-10-15] MEDS: MAGNESIUM 2GM PREMIX 50ML 50 ML IV PRN (08:51)
[2017-10-15] MEDS: FLUCONAZOLE 200 MG/NS 100 ML 100 ML IV SCH (08:51)
[2017-10-15] MEDS: ACETAMINOPHEN-CODEINE 300/30MG TAB PO PRN ×2 (08:53→12:21)
[2017-10-15] MEDS: GABAPENTIN 300 MG CAPSULE PO SCH ×3 (08:53→20:37)
[2017-10-15] MEDS: THIAMINE HCL 100 MG TABLET PO SCH (08:53)
[2017-10-15] MEDS: DOCUSATE CALCIUM 240 MG CAP PO SCH ×2 (08:54→20:36)
[2017-10-15] MEDS: SPIRONOLACTONE 25 MG TAB PO SCH ×2 (08:54→20:37)
[2017-10-15] MEDS: SENNOSIDES 8.6 MG TABLET PO SCH (08:54)
[2017-10-15] MEDS: MULTIVITS,STRESS FORMULA/ZINC 1 TABLET PO SCH (08:54)
[2017-10-15] MEDS: OXYBUTYNIN 5 MG TAB.SR.24H PO SCH (08:55)
[2017-10-15] MEDS: FOLIC ACID 1 MG TABLET PO SCH (08:55)
[2017-10-15] MEDS: ASCORBIC ACID 500 MG TAB PO SCH (08:55)
[2017-10-15] MEDS: PANTOPRAZOLE SODIUM 40 MG TABLET.DR PO SCH (08:55)
[2017-10-15] MEDS: POTASSIUM CHLORIDE 20 MEQ ERTAB PO PRN ×3 (08:55→15:23)
[2017-10-15] MEDS: FUROSEMIDE 20 MG TABLET PO SCH ×2 (08:55→20:37)
[2017-10-15] MEDS: SERTRALINE HCL 50 MG TABLET PO SCH (08:55)
[2017-10-15] MEDS: METOPROLOL TARTRATE 50 MG TAB PO SCH ×2 (08:55→20:37)
[2017-10-15] MEDS: PREDNISONE 10 MG TABLET PO SCH (08:56)
[2017-10-15] MEDS: ENOXAPARIN SODIUM 40 MG/0.4 ML SYRINGE SQ SCH ×2 (09:02→20:39)
[2017-10-15] MEDS: SIMETHICONE 80 MG TAB.CHEW PO SCH ×4 (09:02→20:38)
[2017-10-15] MEDS: ZOSYN 3.375GM+NS 50ML 50 ML IV SCH ×2 (10:13→20:35)
[2017-10-15] MEDS: SODIUM HYPOCHLORITE 0.25% [HALF STRENGTH] 473 ML TOPICAL SOLN TP SCH ×2 (10:14→20:40)
[2017-10-15] MEDS: HONEY 1 APPL/ML TUBE TP SCH (10:15)
[2017-10-15] MEDS: NYSTATIN 30 GM CREAM.GM. TP SCH ×2 (10:16→20:39)
[2017-10-15 12:00] VITALS: BP 131/75
[2017-10-15] MEDS ORDERED: MAGNESIUM 2GM PREMIX 50ML 50 ML IV SCH (14:30)
[2017-10-15 16:00] VITALS: BP 127/72
[2017-10-15 19:30] VITALS: BP 122/74
[2017-10-15] MEDS: ROPINIROLE HCL 1 MG TABLET PO SCH (20:36)
[2017-10-15] MEDS: ATORVASTATIN CALCIUM 10 MG TABLET PO SCH (20:38)
[2017-10-15 23:06] VITALS: BP 116/65
[2017-10-16 03:49] VITALS: BP 106/59
[2017-10-16 04:03] LABS: HEMATOCRIT 26.6 % (36-48); MEAN CORPUSCULAR HEMOGLOBIN 29.7 pg (27.0-33.0); MEAN CORPUSCULAR HGB CONC 33.7 g/dL (32.0-36.0); PLATELET COUNT (AUTO) 234 K/uL (130-400); RED BLOOD CELL COUNT(AUTO) 3.02 MIL/uL (4.00-5.50); RED CELL DISTRIBUTION WIDTH 16.5 % (11.0-15.5); WHITE BLOOD COUNT (AUTO) 10.5 K/uL (4.8-10.8)
[2017-10-16 04:14] LABS: CREATININE 0.7 mg/dL (0.5-1.5); MAGNESIUM 1.5 mg/dL (1.80-2.40); POTASSIUM 3.8 mmol/L (3.5-5.1)
[2017-10-16] MEDS: ACETAMINOPHEN-CODEINE 300/30MG TAB PO PRN (05:04)
[2017-10-16 08:00] VITALS: BP 124/72
[2017-10-16] MEDS: SIMETHICONE 80 MG TAB.CHEW PO SCH ×3 (09:00→17:09)
[2017-10-16 11:33] VITALS: BP 123/68
[2017-10-16] MEDS: HONEY 1 APPL/ML TUBE TP SCH (11:48)
[2017-10-16] MEDS: ZOSYN 3.375GM+NS 50ML 50 ML IV SCH ×2 (11:49→23:54)
[2017-10-16] MEDS: SODIUM HYPOCHLORITE 0.25% [HALF STRENGTH] 473 ML TOPICAL SOLN TP SCH (11:49)
[2017-10-16] MEDS: VANCOMYCIN 1.25 GM in SODIUM CHLORIDE 0.9% 250 ML IV SCH ×2 (11:49→21:52)
[2017-10-16] MEDS: FLUCONAZOLE 200 MG/NS 100 ML 100 ML IV SCH (11:50)
[2017-10-16] MEDS: DOCUSATE CALCIUM 240 MG CAP PO SCH (11:54)
[2017-10-16] MEDS: PREDNISONE 10 MG TABLET PO SCH (11:55)
[2017-10-16] MEDS: PANTOPRAZOLE SODIUM 40 MG TABLET.DR PO SCH (11:55)
[2017-10-16] MEDS: OXYBUTYNIN 5 MG TAB.SR.24H PO SCH (11:55)
[2017-10-16] MEDS: FOLIC ACID 1 MG TABLET PO SCH (11:55)
[2017-10-16] MEDS: ASCORBIC ACID 500 MG TAB PO SCH (11:55)
[2017-10-16] MEDS: MULTIVITS,STRESS FORMULA/ZINC 1 TABLET PO SCH (11:55)
[2017-10-16] MEDS: SERTRALINE HCL 50 MG TABLET PO SCH (11:55)
[2017-10-16] MEDS: THIAMINE HCL 100 MG TABLET PO SCH (11:55)
[2017-10-16] MEDS: SENNOSIDES 8.6 MG TABLET PO SCH (11:56)
[2017-10-16] MEDS: GABAPENTIN 300 MG CAPSULE PO SCH ×2 (11:56→13:19)
[2017-10-16] MEDS: FUROSEMIDE 20 MG TABLET PO SCH (11:56)
[2017-10-16] MEDS: SPIRONOLACTONE 25 MG TAB PO SCH (11:56)
[2017-10-16] MEDS: METOPROLOL TARTRATE 50 MG TAB PO SCH (11:56)
[2017-10-16] MEDS: ENOXAPARIN SODIUM 40 MG/0.4 ML SYRINGE SQ SCH (11:57)
[2017-10-16] MEDS: NYSTATIN 30 GM CREAM.GM. TP SCH (11:58)
[2017-10-16] MEDS: LACTULOSE 20 GM/30 ML UDCUP PO PRN (12:04)
[2017-10-16] MEDS: MORPHINE SULFATE 4 MG/1ML SYG IM PRN ×2 (12:06→17:26)
[2017-10-16 16:00] VITALS: BP 126/67
[2017-10-16] MEDS: MAGNESIUM 2GM PREMIX 50ML 50 ML IV PRN (16:30)
[2017-10-16 20:00] VITALS: BP 132/71
[2017-10-16] MEDS ORDERED: MAGNESIUM OXIDE 400 MG TABLET PO SCH (21:00)
[2017-10-16 23:46] VITALS: BP 138/69
== END 2017-10-17 02:52 | DRG 853 ==
LOC: EDH 18:38 → EDHIP 20:54 → 3AH 21:13 → EDHIP 21:13 → 2BH 10-05 08:06 → 3BH 10-11 16:27
PROVIDERS: ADMIT Internal Medicine; ATTEND Internal Medicine
PROC: 02HV33Z Insertion of Infusion Device into Superior Vena Cava, Percutaneous Approach (ICD-10-PCS; 2017-10-05)
PROC: B548ZZA Ultrasonography of Superior Vena Cava, Guidance (ICD-10-PCS; 2017-10-05)
PROC: 5A09457 Assistance with Respiratory Ventilation, 24-96 Consecutive Hours, Continuous Positive Airway Pressure (ICD-10-PCS; 2017-10-05)
PROC: 5A09357 Assistance with Respiratory Ventilation, Less than 24 Consecutive Hours, Continuous Positive Airway Pressure (ICD-10-PCS; 2017-10-06)
PROC: 5A09357 Assistance with Respiratory Ventilation, Less than 24 Consecutive Hours, Continuous Positive Airway Pressure (ICD-10-PCS; 2017-10-07)
PROC: 5A09357 Assistance with Respiratory Ventilation, Less than 24 Consecutive Hours, Continuous Positive Airway Pressure (ICD-10-PCS; 2017-10-08)
PROC: 5A09357 Assistance with Respiratory Ventilation, Less than 24 Consecutive Hours, Continuous Positive Airway Pressure (ICD-10-PCS; 2017-10-09)
PROC: 0JBB0ZZ Excision of Perineum Subcutaneous Tissue and Fascia, Open Approach (ICD-10-PCS; 2017-10-10)
PROC: 5A09357 Assistance with Respiratory Ventilation, Less than 24 Consecutive Hours, Continuous Positive Airway Pressure (ICD-10-PCS; 2017-10-10)
PROC: 0JB70ZZ Excision of Back Subcutaneous Tissue and Fascia, Open Approach (ICD-10-PCS; principal; 2017-10-10 13:50)
PROC: 5A09357 Assistance with Respiratory Ventilation, Less than 24 Consecutive Hours, Continuous Positive Airway Pressure (ICD-10-PCS; 2017-10-11)
PROC: 5A09357 Assistance with Respiratory Ventilation, Less than 24 Consecutive Hours, Continuous Positive Airway Pressure (ICD-10-PCS; 2017-10-12)
PROC: 5A09357 Assistance with Respiratory Ventilation, Less than 24 Consecutive Hours, Continuous Positive Airway Pressure (ICD-10-PCS; 2017-10-14)
DX: A41.9 Sepsis, unspecified organism (principal); J96.01 Acute respiratory failure with hypoxia; R65.21 Severe sepsis with septic shock; I50.31 Acute diastolic (congestive) heart failure; N17.9 Acute kidney failure, unspecified; E11.22 Type 2 diabetes mellitus with diabetic chronic kidney disease; L89.152 Pressure ulcer of sacral region, stage 2; J96.21 Acute and chronic respiratory failure with hypoxia; J96.22 Acute and chronic respiratory failure with hypercapnia; E87.2 Acidosis; I13.0 Hypertensive heart and chronic kidney disease with heart failure and stage 1 through stage 4 chronic kidney disease, or unspecified chronic kidney disease; E66.2 Morbid (severe) obesity with alveolar hypoventilation; E87.1 Hypo-osmolality and hyponatremia; K61.0 Anal abscess; L03.115 Cellulitis of right lower limb; N39.0 Urinary tract infection, site not specified; L02.216 Cutaneous abscess of umbilicus; L03.116 Cellulitis of left lower limb; E66.01 Morbid (severe) obesity due to excess calories; D64.9 Anemia, unspecified; E78.5 Hyperlipidemia, unspecified; E87.5 Hyperkalemia; R62.7 Adult failure to thrive; E11.621 Type 2 diabetes mellitus with foot ulcer; E11.622 Type 2 diabetes mellitus with other skin ulcer; E83.42 Hypomagnesemia; E87.6 Hypokalemia; G47.33 Obstructive sleep apnea (adult) (pediatric); N18.9 Chronic kidney disease, unspecified; F32.9 Major depressive disorder, single episode, unspecified; L89.891 Pressure ulcer of other site, stage 1; L89.612 Pressure ulcer of right heel, stage 2; L89.621 Pressure ulcer of left heel, stage 1; S90.422A Blister (nonthermal), left great toe, initial encounter; X58.XXXA Exposure to other specified factors, initial encounter; Y93.89 Activity, other specified; Z74.01 Bed confinement status; Z99.81 Dependence on supplemental oxygen; Y92.89 Other specified places as the place of occurrence of the external cause; Y99.8 Other external cause status; Z88.8 Allergy status to other drugs, medicaments and biological substances
CPT/HCPCS: 36415; 36600; 71045; 76770; 80048; 80053; 80202; 81001; 82533; 82550; 82553; 82803; 82948; 83605; 83735; 83874; 83880; 84100; 84484; 85025; 85027; 85378; 85610; 85730; 85732; 86850; 86900; 86901; 87040; 87070; 87077; 87088; 87106; 87186; 88304; 93005; 93306; 93970; 94660; C1894; C9113; J0330; J1100; J1450; J1650; J1720; J2001; J2270; J2370; J2405; J2543; J2704; J2710; J3370; J3475; J3480; J3490; J7030; J7040; J7120; J7512